=== PATIENT | male | born 1975 | race Caucasian/White ===

== ENCOUNTER 2018-10-30 11:21 | Emergency (ER) | payer SELFPAY ==
--- NOTE | 2018-10-30 11:38 | EDM.PDOC ---
ED HPI GENERAL MEDICAL PROBLEM - General Chief Complaint: Chest Pain Stated Complaint: CHEST PAIN BLURRED VISION Time Seen by Provider: 10/30/18 11:28 Source of Information: Reports: Patient History Limitations: Reports: No Limitations - History of Present Illness INITIAL COMMENTS - FREE TEXT/NARRATIVE: 43-year-old male presents to the ED with sudden onset of lower retrosternal sharp stabbing pains that lasted about 20 seconds and occurred on 2 or 3 occasions this morning. It started to make him feel faint with blurred him vision or altered visual acuity for short period of time so she with a pain response. He was seated at his desk at the time of occurrence. Denies being sick in terms of fever chills cough or cold symptoms. Anus felt primarily lower retrosternal area and radiates slightly through to his back. He states he is not having much in terms of reflux since he had gastric sleeve procedure carried out 3 years ago. Has no known heart disease. Used to weigh 420 pounds currently down to around 265. Has never been a diabetic. Used to smoke cigarettes but quit 3 years ago. No recent travel history. Has a history of high blood pressure. On medication for this. Has eaten a donut and some coffee so far this morning. Onset: Today Onset Date: 10/30/18 Onset Time: 09:30 Duration: Minutes: Location: Reports: Chest (Sharp stabbing pain lower retrosternal chest. No radiation to the neck shoulder or arm on the left side. Perhaps some radiation through to his mid back.), Radiates to (Perhaps mildly to the mid back) Quality: Reports: Sharp, Stabbing Severity: Moderate Improves with: Reports: Other (Improved on its own.) Worsens with: Reports: Other Context: Denies: Activity, Exercise (Deep breathing perhaps makes it a little bit worse.), Lifting, Sick Contact, Trauma, Other Associated Symptoms: Reports: Chest Pain, Weakness ([place] weak and hot prickly sensation on the pain was intense.). 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: Other (see below) (None.) Mid-Sternal Chest Pain Score (Numeric/FACES): 4 - Related Data Allergies Allergy/AdvReac Type Severity Reaction Status Date / Time formaldehyde Allergy Anaphylactic Verified 10/30/18 11:32 Shock Home Meds: Home Meds amLODIPine Besylate [Norvasc] 10 mg PO DAILY #30 tablet 10/30/18 [Rx] Past Medical History Cardiovascular History: Reports: Hypertension Gastrointestinal History: Reports: GERD (Used to have GERD severely but improved since gastric sleeve procedure.), Other (See Below) (Has had gastric sleeve procedure or bariatric surgery.) Endocrine/Metabolic History: Reports: Obesity/BMI 30+ (Has had gastric sleeve procedure 3 years ago. Weight is down from 420 pounds to around 260.) Social & Family History - Living Situation & Occupation Living situation: Reports: Single Occupation: Employed ED ROS GENERAL - Review of Systems Review Of Systems: See Below Constitutional: Denies: Fever, Chills, Malaise, Weakness, Fatigue, Decreased Appetite, Weight Loss HEENT: Reports: Vision Change (Visual acuity change transiently associate with development of pain this morning.) Respiratory: Reports: No Symptoms, Shortness of Breath. Denies: Wheezing, Pleuritic Chest Pain, Cough, Sputum, Hemoptysis, Other Cardiovascular: Reports: Chest Pain (Subjective dyspnea on deep inspiration as it makes the pain in the lower retrosternal area a little worse.), Blood Pressure Problem, Dyspnea on Exertion (On occasion), Lightheadedness ([place] lightheaded prickly and). Denies: Claudication, Edema ( slightly dizzy this morning), Orthopnea (Mild chronic hypertension), Palpitations Endocrine: Reports: No Symptoms GI/Abdominal: Reports: No Symptoms : Reports: No Symptoms Musculoskeletal: Reports: Joint Pain Skin: Reports: No Symptoms (These hips and low back at times) Neurological: Reports: Paresthesia (Associated feeling hot prickly all over when the pain was severe.) Psychiatric: Reports: No Symptoms Hematologic/Lymphatic: Reports: No Symptoms ED EXAM, GENERAL - Physical Exam Exam: See Below Exam Limited By: No Limitations General Appearance: Alert, WD/WN, No Apparent Distress, Other (Vital signs show afebrile pulse 70 and sinus respectively 18 sats 96% on room air. BP initially 159 /105. Currently BP is 140/103.) Eye Exam: Bilateral Eye: Normal Inspection Head: Atraumatic, Normocephalic Neck: Normal Inspection, Supple, Non-Tender, Full Range of Motion. No: Carotid Bruit, Lymphadenopathy (L), Lymphadenopathy (R) Respiratory/Chest: No Respiratory Distress, Lungs Clear, Normal Breath Sounds, No Accessory Muscle Use, Chest Non-Tender, Other (Cannot elicit any chest wall pain.) Cardiovascular: Normal Peripheral Pulses, Regular Rate, Rhythm, No Edema, No Gallop, No Murmur, No Rub Peripheral Pulses: 3+: Carotid (L), Carotid (R), Posterior Tibial (L), Posterior Tibial (R), Dorsalis Pedis (L), Dorsalis Pedis (R) GI/Abdominal: Normal Bowel Sounds, Soft, Non-Tender, No Organomegaly, No Abnormal Bruit, No Mass, Pelvis Stable Extremities: Normal Inspection, Normal Range of Motion, Non-Tender, No Pedal Edema Neurological: Alert, Oriented, CN II-XII Intact, Normal Cognition, Normal Gait Psychiatric: Anxious (Mildly anxious.) Skin Exam: Warm, Dry, Intact, Normal Color, No Rash EKG INTERPRETATION EKG Date: 10/30/18 Time: 11:30 Rhythm: NSR Rate (Beats/Min): 75 [place]: Normal P-Wave: Enlarged (Left atrial hypertrophy pattern) QRS: Other (There is early R-wave transition in lead V2. Consider right ventricular hypertrophy versus septal hypertrophy pattern. Decreased voltage precordial leads.) ST-T: Other (Diffuse early repolarization pattern V2 to be 6.) QT: Normal EKG Interpretation Comments: Borderline ECG Course - Vital Signs Last Recorded V/S: Last Vital Signs Temp 36.3 C 10/30/18 11:25 Pulse 70 10/30/18 11:25 Resp 18 10/30/18 11:25 BP 159/100 H 10/30/18 11:25 Pulse Ox 96 10/30/18 11:25 - Orders/Labs/Meds Orders: Active Orders 24 hr Category Date Time Status EKG Documentation Completion [RC] STAT Care 10/30/18 11:43 Active Sodium Chloride 0.9% [Normal Saline] 1,000 ml Med 10/30/18 11:45 Active IV ASDIRECTED Medication Orders Sodium Chloride (Normal Saline) 1,000 mls @ 150 mls/hr IV ASDIRECTED BEKA Last Admin: 10/30/18 11:54 Dose: 150 mls/hr Labs: Laboratory Tests 10/30/18 10/30/18 10/30/18 Range/Units 11:57 11:57 11:57 WBC 4.79 (4.23-9.07) K/mm3 RBC 4.91 (4.63-6.08) M/mm3 Hgb 15.3 (13.7-17.5) gm/L Hct 42.5 (40.1-51.0) % MCV 86.6 (79.0-92.2) fl MCH 31.2 (25.7-32.2) pg MCHC 36.0 H (32.2-35.5) g/dl RDW Std Deviation 41.4 (35.1-43.9) fL Plt Count 211 (163-337) K/mm3 MPV 9.7 (9.4-12.3) fl Neut % (Auto) 58.3 (34.0-67.9) % Lymph % (Auto) 30.5 (21.8-53.1) % [place] % (Auto) 8.1 (5.3-12.2) % Eos % (Auto) 2.3 (0.8-7.0) Baso % (Auto) 0.6 (0.1-1.2) % Neut # (Auto) 2.79 (1.78-5.38) K/mm3 Lymph # (Auto) 1.46 (1.32-3.57) K/mm3 [place] # (Auto) 0.39 (0.30-0.82) K/mm3 Eos # (Auto) 0.11 (0.04-0.54) K/mm3 Baso # (Auto) 0.03 (0.01-0.08) K/mm3 PT 10.2 (9.7-12.0) SECONDS INR 0.93 APTT 27 (22-31) SECONDS D-Dimer, Quantitative (0.19-0.50) mg/L Sodium 145 (136-145) mEq/L Potassium 4.1 (3.5-5.1) mEq/L Chloride 108 H (98-107) mEq/L Carbon Dioxide 28 (21-32) mEq/L Anion Gap 13.1 (5-15) BUN 10 (7-18) mg/dL Creatinine 0.9 (0.7-1.3) mg/dL Est Cr Clr Drug Dosing 113.88 mL/min Estimated GFR (MDRD) > 60 (>60) mL/min BUN/Creatinine Ratio 11.1 L (14-18) Glucose 83 (74-106) mg/dL Calcium 8.3 L (8.5-10.1) mg/dL Magnesium 2.1 (1.8-2.4) mg/dl Total Bilirubin 0.5 (0.2-1.0) mg/dL AST 25 (15-37) U/L ALT 58 (16-63) U/L Alkaline Phosphatase 56 (46-116) U/L CK-MB (CK-2) 0.7 (0-3.6) ng/ml Troponin I < 0.017 (0.00-0.056) ng/mL C-Reactive Protein < 0.2 (<1.0) mg/dL NT-Pro-B Natriuret Pep (0-125) pg/mL Total Protein 7.6 (6.4-8.2) g/dl Albumin 4.0 (3.4-5.0) g/dl Globulin 3.6 gm/dL Albumin/Globulin Ratio 1.1 (1-2) 10/30/18 10/30/18 Range/Units 11:57 11:57 WBC (4.23-9.07) K/mm3 RBC (4.63-6.08) M/mm3 Hgb (13.7-17.5) gm/L Hct (40.1-51.0) % MCV (79.0-92.2) fl MCH (25.7-32.2) pg MCHC (32.2-35.5) g/dl RDW Std Deviation (35.1-43.9) fL Plt Count (163-337) K/mm3 MPV (9.4-12.3) fl Neut % (Auto) (34.0-67.9) % Lymph % (Auto) (21.8-53.1) % [place] % (Auto) (5.3-12.2) % Eos % (Auto) (0.8-7.0) Baso % (Auto) (0.1-1.2) % Neut # (Auto) (1.78-5.38) K/mm3 Lymph # (Auto) (1.32-3.57) K/mm3 [place] # (Auto) (0.30-0.82) K/mm3 Eos # (Auto) (0.04-0.54) K/mm3 Baso # (Auto) (0.01-0.08) K/mm3 PT (9.7-12.0) SECONDS INR APTT (22-31) SECONDS D-Dimer, Quantitative < 0.19 L (0.19-0.50) mg/L Sodium (136-145) mEq/L Potassium (3.5-5.1) mEq/L Chloride (98-107) mEq/L Carbon Dioxide (21-32) mEq/L Anion Gap (5-15) BUN (7-18) mg/dL Creatinine (0.7-1.3) mg/dL Est Cr Clr Drug Dosing mL/min Estimated GFR (MDRD) (>60) mL/min BUN/Creatinine Ratio (14-18) Glucose (74-106) mg/dL Calcium (8.5-10.1) mg/dL Magnesium (1.8-2.4) mg/dl Total Bilirubin (0.2-1.0) mg/dL AST (15-37) U/L ALT (16-63) U/L Alkaline Phosphatase (46-116) U/L CK-MB (CK-2) (0-3.6) ng/ml Troponin I (0.00-0.056) ng/mL C-Reactive Protein (<1.0) mg/dL NT-Pro-B Natriuret Pep 11 (0-125) pg/mL Total Protein (6.4-8.2) g/dl Albumin (3.4-5.0) g/dl Globulin gm/dL Albumin/Globulin Ratio (1-2) Meds: Medications Generic Name Dose Route Start Last Admin Trade Name Freq PRN Reason Stop Dose Admin Sodium Chloride 1,000 mls @ 150 mls/hr 10/30/18 11:45 10/30/18 11:54 Normal Saline IV 150 mls/hr ASDIRECTED BEKA Administration - Radiology Interpretation Free Text/Narrative:: 43-year-old male presents to the ED for evaluation of retrosternal chest pains. State patient states while seated at his desk at work this morning he developed sharp stabbing pains lower retrosternal chest readings to to his mid back. They started to make him feel unwell with prickly hot sensation. States his visual acuity seem to change with transient blurred vision same time suggesting increased vagal tone. Patient has had previous bariatric sleeve procedure. She doesn't usually have any reflux since the procedure and weight loss. He has chronic hypertension. Pain-free at time of examination. Lungs are clear heart was sinus no murmurs identified ECG shows sinus rhythm at 75/m. There is early R -wave transition giving some consideration to right ventricular hypertrophy versus septal hypertrophy pattern. Decreased voltage in the precordial leads. Left atrial hypertrophy pattern. No signs of ischemia. Plan 1 view chest x-ray. IV normal saline at 150 mils per hour. No medications administered this time. Suspect GI source of chest pain. - Re-Assessments/Exams Free Text/Narrative Re-Assessment/Exam: 10/30/18 12:09 portable chest x-ray reveals mild cardiomegaly per portable technique. It also suggests diffuse vascular congestion pattern. BNP will be ordered because of this finding on chest x-ray 10/30/18 13:02 Labs reveal a normal white count at 4.79. Auto differential reveals 58.3% neutrophils. Hemoglobin is 15.3 with hematocrit of 42.5. Platelet count is normal 211,000. PT is 10.2 with an INR of 0.93. PTT is 27. D-dimer is less than 0.19. Sodium 145 with a potassium of 4.1. Chloride is 108. Bicarbonate is 28. Anion gap is 13.1. Glucose is 83 with a calcium of 8.3. Magnesium 2.1 of her function normal. CK-MB was 0.7. Troponin I is less than 0.017 C-reactive protein is less than 0.2. BNP is 11. Total protein 7.6 with an albumin fraction of 4.0. 10/30/18 13:11 discussed the findings with the patient. He was reassured. I suspect it is still coming from gastroesophageal etiology. Advised Zantac 150 mg once a day. She remains borderline elevated at 142/93. After discussion he has decided to go on blood pressure medication as she has been chronically low- grade hypertensive for a long time. Will therefore write him a prescription for Norvasc 10 mg once daily. Departure - Departure Time of Disposition: 13:12 Disposition: Home, Self-Care 01 Condition: Fair Clinical Impression: Non-cardiac chest pain, Esophageal spasm Hypertension Qualifiers: Hypertension type: essential hypertension Qualified Code(s): I10 - Essential ( primary) hypertension Prescriptions: amLODIPine Besylate [Norvasc] 10 mg PO DAILY #30 tablet Instructions: Esophageal Spasm, Nonspecific Chest Pain Referrals: PCP,None [Primary Care Provider] - Forms: ED Department Discharge Additional Instructions: Evaluation the emergency room this morning in regards to development of retrosternal epigastric chest pains while at work this morning. These pains were sharp and stabbing and lasted 20 seconds or longer. They appear to be fairly intense as they caused her to have change in visual acuity and feeling of being hot prickly sensation. This likely was due to increased vagal tone. Strongly suspect GI source of the pain spasm of the lower food pipe at the junction of the stomach and esophagus. Chest x-ray was normal. Is normal. Lab tests including cardiac markers and tests for blood clots proved to be negative as well. Liver and kidney function normal as well. Blood pressure remained elevated while you were in the ED low-grade hypertension with BP 143/93-95. As we discussed her blood pressures been elevated mildly for prolonged period of time and you would likely benefit from an antihypertensive on a daily basis. Therefore suggest use of Norvasc 10 mg once daily for blood pressure control. If symptoms of lower esophageal spasm occur may consider taking Zantac 150 milligrams once daily at bedtime for 10-15 days. Follow-up if any further problems occur. - My Orders Last 24 Hours: My Active Orders 10/30/18 11:43 EKG Documentation Completion [RC] STAT 10/30/18 11:45 Sodium Chloride 0.9% [Normal Saline] 1,000 ml IV ASDIRECTED - Assessment/Plan Last 24 Hours: My Active Orders 10/30/18 11:43 EKG Documentation Completion [RC] STAT 10/30/18 11:45 Sodium Chloride 0.9% [Normal Saline] 1,000 ml IV ASDIRECTED
[2018-10-30] MEDS ORDERED: Sodium Chloride 0.9% 1,000 ML IV SCH (11:45)
--- NOTE | 2018-10-30 12:21 | CR ---
Chest: Portable view of the chest was obtained. Comparison: No prior chest imaging. Heart size and mediastinum are within normal limits for portable technique. Lungs are clear with no acute parenchymal change. Bony structures are grossly intact. Impression: 1. Nothing acute is appreciated on portable chest x-ray. Diagnostic code #1
== END 2018-10-30 13:34 | disposition home or self-care (01) ==
LOC: JD.ED 11:21
DX: K22.4 Dyskinesia of esophagus (principal); I10 Essential (primary) hypertension; E66.9 Obesity, unspecified; Z68.36 Body mass index [BMI] 36.0-36.9, adult; Z87.891 Personal history of nicotine dependence; Z79.899 Other long term (current) drug therapy; Z88.8 Allergy status to other drugs, medicaments and biological substances
CPT/HCPCS: 36415; 71045; 80053; 82553; 83735; 83880; 84484; 85025; 85379; 85610; 85730; 86140; 93005; 96360; 96361; 99285; J7040